=== PATIENT | female | born 1985 | race Caucasian/White ===

== ENCOUNTER 2018-11-18 15:08 | Emergency (ER) | payer MEDICAID ==
[2018-11-18 15:21] VITALS: BP 115/67
--- NOTE | 2018-11-18 16:18 | EDM.PDOC ---
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 LMP was 10/24/18 and normal. August 28 pt had surgical and a Mirena IUD was placed. In september she did not have a menstrual period. 2 days ago she did have sexual intercourse. bleeding started very heavy with clots today. generally feels "crappy" - Related Data Allergies Allergy/AdvReac Type Severity Reaction Status Date / Time No Known Allergies Allergy Verified 07/18/13 09:07 Past Medical History - Past Health History Medical/Surgical History: Denies Medical/Surgical History HYDROELECTRIC STATION CHIEF History: Reports: Other (See Below) Other HYDROELECTRIC STATION CHIEF History: 09/10 Social & Family History - Tobacco Use Smoking Status *Q: Heavy Tobacco Smoker Years of Tobacco use: 10 Packs/Tins Daily: 1 - Caffeine Use Caffeine Use: Reports: Coffee - Recreational Drug Use Recreational Drug Use: No ED ROS GENERAL - Review of Systems Review Of Systems: See Below Constitutional: Denies: Fever, Chills Respiratory: Denies: Shortness of Breath, Wheezing Cardiovascular: Denies: Chest Pain GI/Abdominal: Reports: Abdominal Pain (mild cramping). Denies: Constipation, Diarrhea ED EXAM, RENAL/ - Physical Exam Exam: See Below General Appearance: Alert, WD/WN, No Apparent Distress Respiratory/Chest: No Respiratory Distress, Lungs Clear, Normal Breath Sounds. No: Crackles, Rhonchi, Wheezing Cardiovascular: Normal Peripheral Pulses, Regular Rate, Rhythm, No Edema GI/Abdominal: Soft, Non-Tender, No Distention (Female) Exam: Vaginal Bleeding (normal menstraul), Other (IUD strings present) Neurological: Alert, Oriented Psychiatric: Normal Affect, Normal Mood Skin Exam: Warm, Dry, Intact Course - Vital Signs Last Recorded V/S: Last Vital Signs Temp 35.7 C 11/18/18 15:23 Pulse 99 11/18/18 15:23 Resp 12 11/18/18 15:23 BP 115/67 11/18/18 15:23 Pulse Ox 98 11/18/18 15:23 - Orders/Labs/Meds Labs: Laboratory Tests 11/18/18 Range/Units 16:12 Hgb 9.7 L (12.0-15.0) g/dL Departure - Departure Time of Disposition: 16:50 Disposition: Home, Self-Care 01 Condition: Good Clinical Impression: Heavy menses due to IUD - Discharge Information *PRESCRIPTION DRUG MONITORING PROGRAM REVIEWED*: Not Applicable *COPY OF PRESCRIPTION DRUG MONITORING REPORT IN PATIENT CLIVE: Not Applicable Instructions: Dysmenorrhea, [id number] Referrals: Kayla Lopez CNM [Primary Care Provider] - Forms: ED Department Discharge Additional Instructions: you are mildly anemic encourage iron rich foods ibuprofen 400-600mg every 6 hours for pain and cramping IUD strings present
== END 2018-11-18 16:56 | disposition home or self-care (01) ==
LOC: JP.ED 15:08
DX: T83.89XA Other specified complication of genitourinary prosthetic devices, implants and grafts, initial encounter (principal); N92.0 Excessive and frequent menstruation with regular cycle; F17.210 Nicotine dependence, cigarettes, uncomplicated; Z87.59 Personal history of other complications of pregnancy, childbirth and the puerperium
CPT/HCPCS: 36415; 85018; 99283